=== PATIENT | female | born 1980 ===

== ENCOUNTER 2019-11-03 19:27 | Emergency (ER) | payer SELFPAY ==
[2019-11-03] MEDS ORDERED: NA CHLORIDE 0.9% 1,000 ML ONE (20:15)
[2019-11-03] MEDS ORDERED: MORPHINE 4 MG/ML SYR ONE (20:15)
[2019-11-03] MEDS ORDERED: ONDANSETRON 4 MG/2 ML VIAL ONE (20:15)
[2019-11-03 20:22] LABS: Absolute Lymphocytes (CBC) 2.9 K/uL (0.7-4.9); Basophils % 0.2 % (0-1.3); Hematocrit 44.1 % (36.0-45.0); Lymphocytes % 27.8 % (15.3-44.8); MPV 10.5 fL (7.6-11.3); RBC Red Blood Cell Count 5.01 M/uL (3.86-4.86)
--- NOTE | 2019-11-03 20:31 | RAD REPORT ---
EXAM DESCRIPTION: CT - Stone Protocol - 11/03/2019 8:22 pm CLINICAL HISTORY: Flank pain. FLANK PAIN COMPARISON: No comparisons TECHNIQUE: Axial images were obtained without oral or IV contrast. Lack of contrast limits solid org an and vascular assessment. The [id number] spans the entirety of the system partially obscuring uppermost abdomen and lung bases. Coronal reformatted images were obtained and reviewed. All CT scans are performed using dose optimization technique as appropriate and may include automated exposure control or mA/KV adjustment according to patient size. FINDINGS: The lower lung [place] are clear. Imaged portions of the liver and spleen show no suspicious findings on non-contrast imaging. The panc reas and adrenal glands are normal. No pathologic lymphadenopathy in the abdomen or pelvis. Several g allstones noted in the gallbladder. Punctate stones are present in both kidneys. Mild right hydronephrosis and hydroureter seen without o bstructing calculus. No bowel obstruction, free air, free fluid or abscess. Normal appendix noted. No significant bony abnormality. IMPRESSION: Punctate bilateral nephrolithiasis. Mild right hydronephrosis and right hydroureter note d without obstructing calculus evident. Recent passage of stone would be a possibility. Cholelithiasis.
[2019-11-03 20:41] LABS: ALT/SGPT 17 U/L (12-78); AST/SGOT 16 U/L (15-37); Albumin 4.1 g/dL (3.4-5.0); Alkaline Phosphatase 56 U/L (45-117); BUN Blood Urea Nitrogen 10 mg/dL (7-18); Bicarbonate 29 mmol/L (21-32); Bilirubin Direct < 0.1 mg/dL (0-0.2); Bilirubin Total 0.3 mg/dL (0.2-1.0); Glucose Level 96 mg/dL (74-106); Lipase 386 U/L (73-393); Potassium 4.3 mmol/L (3.5-5.1); Protein, Total 7.9 g/dL (6.4-8.2); Sodium Level 140 mmol/L (136-145)
--- NOTE | 2019-11-03 20:45 | ER ---
Nurse's Notes [facility] Name: Sowmya Ingram Age: 39 yrs Sex: Female : 1980 Arrival Date: 11/03/2019 Time: 19:30 Bed 13 Private MD: Diagnosis: Unspecified hydronephrosis-and hydroureter, both mild Presentation: 11/02 19:50 Chief complaint: Patient states: Right flank pain for 2 days. + nausea. Coronavirus ll1 screen: Proceed with normal triage. Patient denies a cough. Patient denies shortness of breath or difficulty breathing. Patient reports a measured and/or subjective temperature greater than 100.4F. Patient denies travel on a cruise ship or to a country the [facility] currently lists as an affected area. Patient denies contact with known and/or suspected case of COVID-19. subjective fever. Ebola Screen: Patient denies travel to an Ebola-affected area in the 21 days before illness onset. Initial Sepsis Screen: Does the patient meet any 2 criteria? HR > 90 bpm. No. Patient's initial sepsis screen is negative. Risk Assessment: Do you want to hurt yourself or someone else? Patient reports no desire to harm self or others. Onset of symptoms was November 02, 2019. 19:50 Method Of Arrival: Ambulatory ll1 19:50 Acuity: EM 3 ll1 20:00 Initial Sepsis Screen: Does the patient have a suspected source of infection? No. vc Patient's initial sepsis screen is negative. Triage Assessment: 20:00 General: Appears in no apparent distress. uncomfortable, slender, Behavior is calm, vc cooperative, appropriate for age. Pain: Complains of pain in right flank Pain does not radiate. Pain currently is 7 out of 10 on a pain scale. Quality of pain is described as pressure, sharp. GI: Reports nausea. 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 - Social history:: Smoking status: Patient reports the use of cigarette tobacco products, smokes one pack cigarettes per day. Patient/guardian denies using alcohol, street drugs. Screenin:00 Abuse screen: Denies threats or abuse. Nutritional screening: No deficits noted. vc Tuberculosis screening: No symptoms or risk factors identified. Fall Risk None identified. Assessment: 20:00 General: Appears in no apparent distress. uncomfortable, Behavior is calm, cooperative, vc appropriate for age. Pain: Complains of pain in right flank. Neuro: Level of Consciousness is awake, alert, obeys commands, Oriented to person, place, time, situation, Appropriate for age. Cardiovascular: Capillary refill < 3 seconds Patient's skin is warm and dry. Respiratory: Airway is patent Respiratory effort is even, unlabored, Respiratory pattern is regular, symmetrical. GI: Bowel sounds present X 4 quads. Abd is soft. : Urine is cloudy. EENT: No signs and/or symptoms were reported regarding the EENT system. Derm: Skin is intact, is healthy with good turgor. Musculoskeletal: Circulation, motion, and sensation intact. Range of motion: intact in all extremities. 20:58 Reassessment: Patient appears in no apparent distress at this time. Patient and/or vc family updated on plan of care and expected duration. Pain level reassessed. Patient is alert, oriented x 3, equal unlabored respirations, skin warm/dry/pink. Vital Signs: 19:50 BP 155 / 115; Pulse 95; Resp 17; Temp 98.0; Pulse Ox 100% ; ll1 ED Course: 19:30 Patient arrived in ED. ag3 19:39 Claire Rap[facility]C [facility] kb 19:39 Aram Hopper MD is Attending Physician. kb 19:52 Triage completed. ll1 19:53 Arm band placed on Patient placed in an exam room, on a stretcher. ll1 19:54 Magui Livingston, [facility] is Primary Nurse. vc 20:00 Patient has correct armband on for positive identification. Pulse ox on. NIBP on. vc 20:[address] via wheelchair. md1 20:22 CT Stone Protocol In Process Unspecified. EDMS 20:28 CT completed. Patient tolerated procedure well. Patient moved back from CT. 1 20:55 No provider procedures requiring assistance completed. vc 21:25 intact, bleeding controlled, No redness/swelling at site. Pressure dressing applied. vc Administered Medications: 20:23 Drug: NS 0.9% 1000 ml Route: IV; Rate: 1000 ml; Site: right antecubital; vc 20:24 Drug: Zofran (Ondansetron) 4 mg Route: IVP; Site: right antecubital; vc 20:24 Drug: morphine 4 mg Route: IVP; Site: right antecubital; vc 21:00 Follow up: Response: No adverse reaction vc Outcome: 20:45 Discharge ordered by . kb 21:35 Patient left the ED. vc 21:35 Discharged to home ambulatory. vc 21:35 Condition: good 21:35 Discharge instructions given to patient, Instructed on discharge instructions, follow vc up and referral plans. medication usage, Demonstrated understanding of instructions, follow-up care, medications, Prescriptions given X 2. Signatures: Dispatcher [employer] EDClaire Bellamy, STACKER ATTENDANT-C STACKER ATTENDANT-Maylin Millan3 Graciela Lopez md1 Magui Livingston RN RN Tierra Crocker RN RN 1
--- NOTE | 2019-11-03 20:46 | EDPHYS ---
Physician Documentation [facility] Name: Sowmya Ingram Age: 39 yrs Sex: Female : 1980 Arrival Date: 11/03/2019 Time: 19:30 Bed 13 Private MD: ED Physician Aram Hopper HPI: 11/02 20:00 This 39 yrs old Female presents to ER via Ambulatory with complaints of Abdominal Pain. kb 20:00 The patient complains of pain in the right flank. The pain does not radiate. Onset: The kb symptoms/episode began/occurred yesterday. Modifying factors: The symptoms are alleviated by nothing. the symptoms are aggravated by palpation/percussion. Associated signs and symptoms: Pertinent positives: nausea, Pertinent negatives: diarrhea, dizziness, dysuria, fever, urinary frequency, headache, hematuria, pain radiating to the lower extremities, vomiting. Severity of pain: At its worst the pain was moderate in the emergency department the pain is unchanged. The patient has experienced similar episodes in the past, a few times. The patient has not recently seen a physician. Pt reports right flank pain that started yesterday. reports nausea. Denies vomiting, abd pain, urinary symptoms. Has had kidney stones in the past with stent placement. . 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 - Social history:: Smoking status: Patient reports the use of cigarette tobacco products, smokes one pack cigarettes per day. Patient/guardian denies using alcohol, street drugs. ROS: 19:58 Constitutional: Negative for fever, chills, and weight loss, Cardiovascular: Negative kb for chest pain, palpitations, and edema, Respiratory: Negative for shortness of breath, cough, wheezing, and pleuritic chest pain, Abdomen/GI: Negative for abdominal pain, vomiting, diarrhea, and constipation. +nausea MS/Extremity: Negative for injury and deformity, Skin: Negative for injury, rash, and discoloration, Neuro: Negative for headache, weakness, numbness, tingling, and seizure. 19:58 Back: Positive for flank pain, on the right. Exam: 19:59 Constitutional: This is a well developed, well nourished patient who is awake, alert, kb and in no acute distress. Head/Face: Normocephalic, atraumatic. Chest/axilla: Normal chest wall appearance and motion. Nontender with no deformity. No lesions are appreciated. Cardiovascular: Regular rate and rhythm with a normal S1 and S2. No gallops, murmurs, or rubs. Normal PMI, no JVD. No pulse deficits. Respiratory: Lungs have equal breath sounds bilaterally, clear to auscultation and percussion. No rales, rhonchi or wheezes noted. No increased work of breathing, no retractions or nasal flaring. Abdomen/GI: Soft, non-tender, with normal bowel sounds. No distension or tympany. No guarding or rebound. No evidence of tenderness throughout. Skin: Warm, dry with normal turgor. Normal color with no rashes, no lesions, and no evidence of cellulitis. MS/ Extremity: Pulses equal, no cyanosis. Neurovascular intact. Full, normal range of motion. Neuro: Awake and alert, GCS 15, oriented to person, place, time, and situation. Cranial nerves II-XII grossly intact. Motor strength 5/5 in all extremities. Sensory grossly intact. Cerebellar exam normal. Normal gait. 19:59 Back: CVA tenderness, that is moderate, is noted on the right. Vital Signs: 19:50 BP 155 / 115; Pulse 95; Resp 17; Temp 98.0; Pulse Ox 100% ; ll1 MDM: 19:42 Patient medically screened. kb 19:52 Data reviewed: vital signs, nurses notes. Data interpreted: Pulse oximetry: on room air kb is 100 %. Interpretation: normal. 20:44 Counseling: I had a detailed discussion with the patient and/or guardian regarding: the kb historical points, exam findings, and any diagnostic results supporting the discharge/admit diagnosis, lab results, radiology results, the need for outpatient follow up, a family practitioner, a urologist, to return to the emergency department if symptoms worsen or persist or if there are any questions or concerns that arise at home. 11/02 19:51 Order name: Hepatic Function; Complete Time: 20:44 kb 11/02 19:51 Order name: Basic Metabolic Panel; Complete Time: 20:44 kb 11/02 19:51 Order name: CBC with Diff; Complete Time: 20:36 kb 11/02 19:51 Order name: Lipase; Complete Time: 20:44 kb 11/02 19:51 Order name: CT Stone Protocol; Complete Time: 20:36 kb 11/02 20:24 Order name: Urine Dipstick--Ancillary (enter results) mw2 11/02 19:51 Order name: IV Saline Lock; Complete Time: 20:23 kb 11/02 19:51 Order name: Labs collected and sent; Complete Time: 20:23 kb 11/02 19:51 Order name: Urine Dipstick-Ancillary (obtain specimen); Complete Time: 20:24 kb Administered Medications: 20:23 Drug: NS 0.9% 1000 ml Route: IV; Rate: 1000 ml; Site: right antecubital; vc 20:24 Drug: Zofran (Ondansetron) 4 mg Route: IVP; Site: right antecubital; vc 20:24 Drug: morphine 4 mg Route: IVP; Site: right antecubital; vc 21:00 Follow up: Response: No adverse reaction vc Disposition: 11/03 03:46 Co-signature as Attending Physician, Aram Hopper MD. 7 Disposition: 11/03/19 20:45 Discharged to Home. Impression: Unspecified hydronephrosis - and hydroureter, both mild. - Condition is Stable. - Discharge Instructions: Hydronephrosis. - Prescriptions for Zofran 4 mg Oral Tablet - take 1 tablet by ORAL route every 6 hours As needed; 20 tablet. Tramadol 50 mg Oral Tablet - take 1 tablet by ORAL route every 8 hours as needed; 12 tablet. - Medication Reconciliation Form, Thank You Letter, Antibiotic Education, Prescription Opioid Use form. - Follow up: Emergency Department; When: As needed; Reason: Worsening of condition. Follow up: Private Physician; When: 2 - 3 days; Reason: Recheck today's complaints, Continuance of care, Re-evaluation by your physician. Signatures: Dispatcher [employer] EDIN Claire Raphael FNP-C FNP-Ckb Calcote, Vanessa, RN RN vc Tierra Sarmiento RN RN [facility] Aram Hopper MD MD 7 Corrections: (The following items were deleted from the chart) 11/02 21:35 20:45 11/03/2019 20:45 Discharged to Home. Impression: Unspecified hydronephrosis - and vc hydroureter, both mild. Condition is Stable. Forms are Medication Reconciliation Form, Thank You Letter, Antibiotic Education, Prescription Opioid Use. Follow up: Emergency Department; When: As needed; Reason: Worsening of condition. Follow up: Private Physician; When: 2 - 3 days; Reason: Recheck today's complaints, Continuance of care, Re-evaluation by your physician. kb
[2019-11-03] MEDS ORDERED: FENTANYL CITR 100 MCG/2 ML ONE (20:57)
[2019-11-03 21:45] VITALS: BP 155/115; TEMP 98; O2SAT 100
[2019-11-03 22:06] LABS: Urine Blood NEGATIVE (NEG); Urine Glucose NEGATIVE (NEG); Urine Protein NEGATIVE (NEG); Urine Specific Gravity 1.025 (1.005-1.030)
== END 2019-11-03 21:35 | disposition home or self-care (01) ==
LOC: ER 19:27
DX: N13.30 Unspecified hydronephrosis (principal); N13.4 Hydroureter; F17.210 Nicotine dependence, cigarettes, uncomplicated; Z88.6 Allergy status to analgesic agent; Z87.442 Personal history of urinary calculi
CPT/HCPCS: 36415; 74176; 76377; 80048; 80076; 81003; 83690; 85025; 96374; 96375; 99284; J2405; J3010; J7030